=== PATIENT | female | born 1960 | race Caucasian/White ===

== ENCOUNTER 2019-10-20 05:44 | Inpatient (IN) | payer BC ==
[2019-10-13 13:00] VITALS: BMI 23.1
[2019-10-20] MEDS ORDERED: oxyCODONE HCL 10 MG SUSTAINED ACTING TABLET PO ONE (06:45)
[2019-10-20] MEDS: PANTOPRAZOLE 40 MG TABLET PO ONE ×2 (07:07→19:39)
[2019-10-20] MEDS: CELECOXIB 200 MG CAPSULE PO ONE ×2 (07:07→19:38)
[2019-10-20] MEDS ORDERED: VANCOMYCIN 1,000 MG VIAL (RESTRICTED TO ID ONLY) ONE (07:14)
[2019-10-20] MEDS ORDERED: ceFAZolin SODIUM 1 GM VIAL ONE ×2 (07:14→07:28)
[2019-10-20] MEDS ORDERED: DEXAMETHASONE SOD PHOSPHATE 4 MG/1 ML VIAL ONE ×3 (07:15→07:37)
[2019-10-20] MEDS ORDERED: BUPIVACAINE HCL/PF 0.5% (5 MG/ML) 30 ML VIAL IJ ONE (07:16)
[2019-10-20] MEDS ORDERED: MIDAZOLAM HCL 2 MG/2 ML SINGLE DOSE VIAL ONE ×2 (07:28→07:36)
[2019-10-20] MEDS ORDERED: ONDANSETRON 4 MG/2 ML VIAL ONE (07:28)
[2019-10-20] MEDS ORDERED: LIDOCAINE HCL/PF 2% SDV 5ML VIAL ONE (07:28)
[2019-10-20] MEDS ORDERED: KETOROLAC TROMETHAMINE 30 MG/1 ML VIAL ONE (07:28)
[2019-10-20] MEDS ORDERED: PROPOFOL 20 ML ONE ×2 (07:28)
[2019-10-20] MEDS ORDERED: SCOPOLAMINE HYDROBROMIDE 1 PATCH PATCH.TD72 ONE (07:37)
[2019-10-20] MEDS ORDERED: DEXAMETHASONE SOD PHOSPHATE/PF 10 MG/ML SDV ONE (07:39)
[2019-10-20] MEDS ORDERED: LIDOCAINE 1% P/F 10 MG/ML VIAL ONE (07:40)
--- NOTE | 2019-10-20 07:47 | HP ---
Admitting History and Physical - Admission Chief Complaint: left hip osteoarthritis x years History of Present Illness: 59 year old female presents in regard to their left hip. Longstanding history of left hip osteoarthritis. Patient complains of pain, limited ROM, difficulty ambulating and difficulty completing ADLs. Patient has failed conservative treatment measures including PO medications, injections, exercise programs and activity modification. At this point, patient wishes to proceed with surgical intervention, a left total hip arthroplasty - MAKOplasty. History Source: Patient - Past Medical History Cardiovascular: Yes: HTN Musculoskeletal: Yes: Osteoarthritis - Smoking History Smoking history: Never smoked - Alcohol/Substance Use Hx Alcohol Use: No Home Medications - Allergies Allergies/Adverse Reactions: Allergies Allergy/AdvReac Type Severity Reaction Status Date / Time codeine AdvReac Vomiting Verified 10/20/19 06:49 seasonal Allergy Uncoded 10/20/19 06:49 - Home Medications Home Medications: Ambulatory Orders Amlodipine Besylate [Norvasc -] 2.5 mg PO DAILY 10/13/19 Meloxicam 15 mg PO DAILY 10/13/19 Review of Systems - Review of Systems Musculoskeletal: reports: Decreased ROM (left hip), Extremity Pain (left hip), Joint Pain (left hip) Physical Examination Vital Signs: Vital Signs Temperature 98.3 F 10/20/19 06:53 Pulse Rate 71 10/20/19 06:53 Respiratory Rate 18 10/20/19 06:53 Blood Pressure 138/86 10/20/19 06:53 O2 Sat by Pulse Oximetry (%) 97 10/20/19 06:51 Constitutional: Yes: Well Nourished, No Distress Eyes: Yes: Conjunctiva Clear HENT: Yes: Atraumatic Neck: Yes: Supple Cardiovascular: Yes: Regular Rate and Rhythm Respiratory: Yes: Regular Gastrointestinal: Yes: Soft ...Rectal Exam: Yes: Deferred Musculoskeletal: Yes: Joint Stiffness (left hip) Assessment/Plan 59 year old female presents in regard to their left hip. Longstanding history of left hip osteoarthritis. Patient complains of pain, limited ROM, difficulty ambulating and difficulty completing ADLs. Patient has failed conservative treatment measures including PO medications, injections, exercise programs and activity modification. At this point, patient wishes to proceed with surgical intervention, a left total hip arthroplasty - MAKOplasty. Pros, cons, risks benefits and alternatives of a left total hip arthroplasty, MAKOplasty were discussed with the patient at length. Patient confirms their understanding and consents to proceed wituh a left total hip arthroplasty, MAKOplasty.
[2019-10-20] MEDS ORDERED: TRANEXAMIC ACID 1000 MG/10 ML VIAL IVPUSH ONE ×3 (08:00→10:32)
[2019-10-20] MEDS ORDERED: CEFAZOLIN 2 GM in DEXTROSE 5%-WATER - 50 ML IVPB ONE (08:00)
[2019-10-20] MEDS ORDERED: BUPIVICAINE 0.25%/MORPH PF/KETOROLAC - 51ML DISP.SYRINGE IA ONE ×3 (08:00→10:32)
[2019-10-20] MEDS ORDERED: ACETAMINOPHEN 1000 MG/100 ML VIAL (NON FORMULARY) IVPB ONE ×2 (09:48→10:56)
[2019-10-20] MEDS ORDERED: PROMETHAZINE HCL 25 MG/1 ML VIAL IVPUSH PRN (09:48)
[2019-10-20] MEDS ORDERED: ONDANSETRON 4 MG/2 ML VIAL IVPUSH PRN (09:48)
[2019-10-20] MEDS ORDERED: oxyCODONE HCL 5 MG TABLET PO PRN (09:48)
[2019-10-20] MEDS ORDERED: LACTATED RINGERS SOLUTION 1,000 ML IV SCH ×2 (10:00→11:15)
[2019-10-20] MEDS ORDERED: VANCOMYCIN 1,000 MG VIAL (RESTRICTED TO ID ONLY) IVPB ONE (10:09)
--- NOTE | 2019-10-20 10:55 | OP ---
Operative Note - Note: Operative Date: 10/20/19 Pre-Operative Diagnosis: Left hip osteoarthritis Operation: Left AURELIO LESIA Post-Operative Diagnosis: Same as Pre-op Anesthesia: Spinal Estimated Blood Loss (mls): 200
[2019-10-20] MEDS ORDERED: MAGNESIUM HYDROX 2400MG/30ML ORAL SUSPENSION 30 ML CUP PO PRN (11:04)
[2019-10-20] MEDS ORDERED: MAG HYDROX/AL HYDROX/SIMETH 30 ML UNIT-DOSE CUP PO PRN (11:04)
[2019-10-20] MEDS: traMADol HCL 50 MG TABLET PO SCH ×3 (11:20→19:40)
--- NOTE | 2019-10-20 11:58 | SPEC ---
DATE OF OPERATION: 10/20/2019 PREOPERATIVE DIAGNOSIS: Left hip osteoarthritis. POSTOPERATIVE DIAGNOSIS: Left hip osteoarthritis. PROCEDURE: Left total hip replacement with MAKOplasty robotic navigation. ATTENDING: Michael Parker MD MASTER RIGGER: RICHELLE Oakley ANESTHESIA: Spinal plus sedation. ESTIMATED BLOOD LOSS: 200 mL. COMPLICATIONS: None. DISPOSITION: The patient was transferred to the PACU in stable condition. IMPLANTS USED: [place] Accolade II size 5 femoral component, [place] Trident II 52-mm acetabular component with 25- and 20-mm acetabular screws, MDM bipolar head ball and liner with inner ceramic +4-mm offset head ball. INDICATIONS: This is a 59-year-old female who presented to the office complaining of severe left hip pain. She was seen and examined by Dr. Parker and diagnosed with severe left hip osteoarthritis. The patient was initially treated nonoperatively but continued to have severe pain and ambulatory dysfunction. She was, therefore, indicated for a left total hip replacement with MAKOplasty robotic navigation. The risks, benefits, and alternatives to the procedure were explained to the patient in great detail, and she elected to proceed with the procedure. DESCRIPTION OF PROCEDURE: On the day of surgery, the patient was taken to the operating room and placed on the OR table. Spinal anesthesia was administered by the anesthesiologist. The patient was then positioned in the lateral decubitus position on the table and all bony prominences were padded. An axillary roll was placed. The operative hip was then prepped and draped in the usual sterile fashion and intravenous antibiotics were given for infection prophylaxis. A surgical time-out was then performed with the team, and the patients identity, procedure, side, availability of implants, and the administration of antibiotics were confirmed. An approximately 15-cm longitudinal incision was made through the skin centered on the greater trochanter of the hip. This dissection was carried down through the subcutaneous tissues to the deep fascia. This fascia was then incised and a Cobra was placed around the inferior femoral neck. Electrocautery was used to reflect the anterior 40% of the gluteus medius and minimus starting at the musculotendinous junction and leaving a cuff for closure. This was reflected to reveal the capsule of the hip joint. An anterior capsulectomy was performed and the femoral head and neck were visualized. Grade 4 changes were noted diffusely throughout the joint. At this point, three small stab incisions were made superior to the main incision along the iliac crest. Three self-drilling Steinmann pins were then placed and the SnapYeti pelvic array was attached. Reference points on the limb were then entered into the robotic device and the limb length deficiency, offset, and femoral neck resection level were then calculated by the software. The hip was then dislocated with traction and external rotation. An oscillating saw was used to make the femoral neck cut at the level previously templated, and the femoral head was removed. Attention was then turned to the acetabulum. Retractors were then placed around the acetabulum and the labrum was removed. An acetabular checkpoint pin and the SnapYeti software were used to register the contours of the acetabulum. The acetabulum was then reamed in a single stage to the preoperatively templated size using the SnapYeti robotic arm. The appropriately sized cup was then impacted and had solid fixation as well as the preset inclination and version of 40 and 20 degrees, respectively. A polyethylene liner was then placed in the cup. Attention was then turned back to the femur, which was externally rotated for improved visualization. A femoral neck elevator was used to present the femoral neck cut, a box osteotome was used to enter the femoral canal, and a canal finder was used to go down the femoral shaft. The Keenan broaches were used sequentially until the optimal scratch fit was achieved. This correlated with the preoperatively templated size. From here, several different offset head and neck configurations were tested until excellent stability and length were obtained. These measurements were quantified using the SnapYeti software. All trial components were then removed, the femur was copiously irrigated, and the final components were placed. Leg length and stability were checked again and found to be excellent. Irrigation was performed again. After final implants were placed, a dilute Betadine lavage was performed for 3 minutes. Following this, the wound was thoroughly irrigated with normal saline via pulsatile lavage, and wound closure was begun. Wound closure was started by repairing the abductor muscles with a no. 2 FiberWire stitch in a Krackow configuration passed through bone tunnels in the greater trochanter and tied over a bony bridge. This repair was then reinforced with a 0 V-Loc 180 barbed suture. Next, no. 1 Polysorb and 0 V-Loc 180 were used to close the fascia. The deep subcutaneous tissue was closed with no. 1 Polysorb sutures, and 2-0 Polysorb was used for the superficial subcutaneous tissue. The skin was closed using both 3-0 V-Loc 90 suture in a running subcuticular fashion and SwiftSet skin adhesive. The Keenan array and pins were removed from the iliac crest and the stab incision sites were irrigated and closed with 4-0 Polysorb sutures and SwiftSet skin adhesive. Once this was completed, a sterile dressing was applied. The patient was then awakened and taken to the PACU in stable condition. MICHAEL PARKER M.D. [id number]
[2019-10-20] MEDS: KETOROLAC TROMETHAMINE 30 MG/1 ML VIAL IVPUSH SCH ×2 (16:00→21:33)
[2019-10-20] MEDS: CEFAZOLIN 2 GM/D5W 2 GM/50 ML ML IVPB SCH (18:31)
[2019-10-20] MEDS: oxyCODONE HCL 10 MG SUSTAINED ACTING TABLET PO SCH ×2 (19:38→21:34)
[2019-10-20] MEDS ORDERED: DEXAMETHASONE SOD PHOSPHATE 10 MG/1 ML VIAL IVPB ONE (20:00)
[2019-10-20] MEDS: SENNOSIDES/DOCUSATE COMBO (SENNA PLUS) TABLET (UD) PO SCH (21:33)
[2019-10-20] MEDS: CELECOXIB 200 MG CAPSULE PO SCH (21:34)
[2019-10-20] MEDS: ASCORBIC ACID 500 MG TABLET (FP) PO SCH (21:34)
[2019-10-20] MEDS: GABAPENTIN 300 MG CAPSULE PO SCH (21:34)
[2019-10-20] MEDS: ONDANSETRON 4 MG/2 ML VIAL IVPUSH PRN (23:41)
[2019-10-20] MEDS: oxyCODONE HCL 5 MG TABLET PO PRN (23:41)
[2019-10-21] MEDS: CEFAZOLIN 2 GM/D5W 2 GM/50 ML ML IVPB SCH (03:25)
[2019-10-21] MEDS: KETOROLAC TROMETHAMINE 30 MG/1 ML VIAL IVPUSH SCH ×4 (03:35→21:35)
[2019-10-21 07:26] LABS: HEMATOCRIT 36.8 % (32.4-45.2); HEMOGLOBIN 12.1 GM/dl (10.7-15.3); MCH 29.3 pg (25.7-33.7); MCHC 32.9 g/dl (32.0-36.0); MEAN CELL VOLUME 89.1 fl (80-96); MEAN PLT VOLUME 8.6 fl (7.5-11.1); PLATELET COUNT 305 K/MM3 (134-434); RBC 4.13 M/mm3 (3.60-5.2); RDW 12.6 % (11.6-15.6); WHITE BLOOD COUNT 15.4 K/mm3 (4.0-10.8)
[2019-10-21 07:28] LABS: CALCIUM 8.7 mg/dl (8.5-10); CREATININE 0.8 mg/dl (0.55-1.3)
[2019-10-21] MEDS: oxyCODONE HCL 5 MG TABLET PO PRN (07:52)
[2019-10-21] MEDS: ASPIRIN 325 MG TABLET PO SCH (07:52)
[2019-10-21] MEDS: GABAPENTIN 300 MG CAPSULE PO SCH ×2 (09:15→21:33)
[2019-10-21] MEDS: SENNOSIDES/DOCUSATE COMBO (SENNA PLUS) TABLET (UD) PO SCH ×2 (09:15→21:33)
[2019-10-21] MEDS: ASCORBIC ACID 500 MG TABLET (FP) PO SCH ×2 (09:15→21:33)
[2019-10-21] MEDS: PANTOPRAZOLE 40 MG TABLET PO SCH (09:16)
[2019-10-21] MEDS: MULTIVITAMINS (DAILY MVI) TABLET (FP) PO SCH (09:16)
[2019-10-21] MEDS: oxyCODONE HCL 10 MG SUSTAINED ACTING TABLET PO SCH ×2 (09:16→21:32)
[2019-10-21] MEDS: amLODIPine BESYLATE 2.5 MG TABLET (FP) PO SCH ×2 (09:16→09:20)
[2019-10-21] MEDS: CELECOXIB 200 MG CAPSULE PO SCH ×2 (09:16→21:33)
[2019-10-21] MEDS: traMADol HCL 50 MG TABLET PO SCH ×3 (12:48→23:51)
--- NOTE | 2019-10-21 15:10 | PN ---
Progress Note (short form) - Note Progress Note: POD #1 s/p Left Total Hip replacement makoplasty under spinal and paravertebral block. Patient pain controlled with current pain regimen. C/o nausea with the oxycodone which is tolerable with zofran. All questions answered.
[2019-10-21] MEDS: ONDANSETRON 4 MG/2 ML VIAL IVPUSH PRN (21:35)
[2019-10-22] MEDS: KETOROLAC TROMETHAMINE 30 MG/1 ML VIAL IVPUSH SCH ×2 (04:45→10:22)
[2019-10-22] MEDS: traMADol HCL 50 MG TABLET PO SCH (05:52)
[2019-10-22 06:34] VITALS: BP 94/40; PULSE 64; TEMP 97.9
[2019-10-22 07:52] LABS: HEMATOCRIT 33.5 % (32.4-45.2); HEMOGLOBIN 11.4 GM/dl (10.7-15.3); MCH 30.1 pg (25.7-33.7); MCHC 34.1 g/dl (32.0-36.0); MEAN CELL VOLUME 88.3 fl (80-96); MEAN PLT VOLUME 8.6 fl (7.5-11.1); PLATELET COUNT 269 K/MM3 (134-434); RBC 3.79 M/mm3 (3.60-5.2); RDW 12.5 % (11.6-15.6); WHITE BLOOD COUNT 11.3 K/mm3 (4.0-10.8)
--- NOTE | 2019-10-22 08:23 | DS ---
Physical Examination Vital Signs: Vital Signs Temperature 97.9 F 10/22/19 06:00 Pulse Rate 64 10/22/19 06:00 Respiratory Rate 19 10/22/19 06:00 Blood Pressure 94/40 L 10/22/19 06:00 O2 Sat by Pulse Oximetry (%) 98 10/22/19 06:32 Labs: CBC, BMP 10/22/19 07:10 10/21/19 07:00 Discharge Summary Problems reviewed: Yes Reason For Visit: LEFT HIP OSTEOARTHRITIS Current Active Problems Osteoarthritis of left hip (Acute) Procedures: Principal: left AURELIO LESIA Hospital Course: Admitted for elective surgery. Procedure performed without complications. Pt received postoperative antibiotic prophylaxis and DVT ppx. Ambulated with physical therapy. Stable for discharge home with outpatient followup. Condition: Stable - Instructions Diet, Activity, Other Instructions: Dr Greenberg - Hip Replacement Instructions Keep the Aquacel dressing on until removed by Dr. Greenberg in the office - it is antibacterial and waterproof and you can shower with it on. Call the office for a follow-up appointment with Dr. Greenberg in 2 weeks. [phone] Take one Aspirin 325mg daily for 6 weeks to prevent blood clots in your legs. Take one Pantoprazole 40mg daily for 6 weeks to protect against heartburn and ulcers. Take Cephalexin (antibiotic) 3x/day for 10 days to help prevent skin infection. Take Celebrex 200mg twice daily for 30 days to reduce swelling and inflammation. Take a multivitamin, stool softener and extra Vitamin C supplement daily. Take ondansetron every 6 hours as needed for nausea. For pain: *Mild pain (1-3/10): Take 1 Tramadol tablet every 4 hours as needed. Moderate pain (4-6/10): Take 1 Tramadol tablet and 1 Percocet tablet every 4 hours as needed. Severe pain (7-10/10): Take 1 Tramadol tablet and 2 Percocet tablets every 4 hours as needed. Activity: You can put as much weight on the operative leg as you want. For the first 6 weeks, all you need to do is walk around the house, go up/down stairs, and sit down/get up. After 6 weeks when everything is healed (and bone has grown into the implant) you will be sent for more intensive outpatient physical therapy. Always use a walker or cane for balance and to prevent falls. Expect to see swelling / bruising from the operative site all the way down to your toes. Wear the Compression stocking on the operative side during the day to minimize how much swelling there is in your foot/ankle. Don't wear the stocking at night. You don't have to wear the stocking on the other side. Disposition: [facility]NS/HOME HEALTH CARE - Home Medications Comprehensive Discharge Medication List: Ambulatory Orders Amlodipine Besylate [Norvasc -] 2.5 mg PO DAILY 10/13/19 Ascorbic Acid [Vitamin C -] 500 mg PO BID tablet 10/22/19 Aspirin [ASA -] 325 mg PO DAILY@0800 tablet 10/22/19 Celecoxib [CeleBREX -] 200 mg PO BID #60 capsule 10/22/19 Cephalexin Monohydrate [Keflex -] 500 mg PO TID #30 capsule 10/22/19 Multivitamins [Multivit ([facility] Formulary)] 1 tab PO DAILY tab 10/22/19 Ondansetron [Zofran *Odt*] 4 mg SL Q6H PRN #30 od.tablet MDD 4 10/22/19 Oxycodone HCl/Acetaminophen [Percocet 5-325 mg Tablet] 1 - 2 tab PO Q4H PRN #60 tablet MDD 10 10/22/19 Pantoprazole Sodium [Protonix -] 40 mg PO DAILY #40 tablet.ec 10/22/19 Sennosides/Docusate Sodium [Pericolace -] 2 tablet PO BID tablet 10/22/19 traMADol HCL [Ultram -] 50 mg PO Q4H PRN #42 tablet MDD 6 10/22/19
[2019-10-22] MEDS: ASPIRIN 325 MG TABLET PO SCH (09:00)
[2019-10-22] MEDS: GABAPENTIN 300 MG CAPSULE PO SCH (09:30)
[2019-10-22] MEDS: ASCORBIC ACID 500 MG TABLET (FP) PO SCH (09:30)
[2019-10-22] MEDS: amLODIPine BESYLATE 2.5 MG TABLET (FP) PO SCH (09:30)
[2019-10-22] MEDS: MULTIVITAMINS (DAILY MVI) TABLET (FP) PO SCH (09:30)
[2019-10-22] MEDS: CELECOXIB 200 MG CAPSULE PO SCH (09:30)
[2019-10-22] MEDS: PANTOPRAZOLE 40 MG TABLET PO SCH (09:30)
[2019-10-22] MEDS: oxyCODONE HCL 10 MG SUSTAINED ACTING TABLET PO SCH (09:30)
[2019-10-22] MEDS: SENNOSIDES/DOCUSATE COMBO (SENNA PLUS) TABLET (UD) PO SCH (09:30)
--- NOTE | 2019-10-22 13:16 | PATH ---
Surgical Pathology Report Patient Name: SINDI DUCKWORTH Med. Rec. #: [id number] /Age/Gender: 1960 (Age: 59) / F Account: [id number] Location: [facility] Taken: 10/20/2019 Received: 10/20/2019 Reported: 10/22/2019 Physicians: Angus Greenberg M.D. Specimen(s) Received LEFT FEMORAL HEAD Clinical History Left hip osteoarthritis Final Diagnosis BONE, FEMORAL HEAD, LEFT, TOTAL HIP REPLACEMENT: BONE WITH DEGENERATIVE JOINT DISEASE. Electronically Signed Meryl Carlson M.D. Gross Description Received in formalin, labeled "left femoral head," is a 5.0 x 4.7 x 4.1 cm. femoral head with a 1.0 cm in length portion of femoral neck attached. The margin of resection is smooth. There is a 3.8 cm greatest dimension area of eburnation present. The remaining articular surface is delgadillo-yellow and diffusely nodular and granular. The underlying trabecular bone is yellow and hard. A service center representative section is submitted in one cassette, following decalcification. /10/21/2019 [facility]10/21/2019
== END 2019-10-22 12:17 | disposition home health service (06) | DRG 470 ==
LOC: FM/S 05:44
PROVIDERS: ADMIT Student in an Organized Health Care Education/Training Program; ATTEND Student in an Organized Health Care Education/Training Program
PROC: 8E0W0CZ Robotic Assisted Procedure of Trunk Region, Open Approach (ICD-10-PCS; 2019-10-20)
PROC: 0SRB03A Replacement of Left Hip Joint with Ceramic Synthetic Substitute, Uncemented, Open Approach (ICD-10-PCS; principal; 2019-10-20 08:22)
DX: M16.12 Unilateral primary osteoarthritis, left hip (principal); I10 Essential (primary) hypertension
CPT/HCPCS: 36415; 73502-TC-LT-FY; 80048; 85027; 88305-TC; 88311-TC; 94760; 97116-GP; 97163-GP; J0131; J1100